=== PATIENT | male | born 1965 | race Caucasian/White ===

== ENCOUNTER 2016-05-12 08:35 | Emergency (ER) | payer MEDICARE, OTHER ==
[2016-05-12 08:47] VITALS: BP 110/61; PULSE 64; RESP 18; TEMP 98
[2016-05-12] MEDS ORDERED: GELATIN SPONGE,ABSORB (SMALL) 1 EACH SPONGE TOPICAL STA (08:54)
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
== END 2016-05-12 09:16 | disposition home or self-care (01) ==
LOC: EC 08:35
DX: S61.002A Unspecified open wound of left thumb without damage to nail, initial encounter (principal); J44.9 Chronic obstructive pulmonary disease, unspecified; E78.5 Hyperlipidemia, unspecified; I10 Essential (primary) hypertension; K21.9 Gastro-esophageal reflux disease without esophagitis; F41.9 Anxiety disorder, unspecified; N20.0 Calculus of kidney; M19.90 Unspecified osteoarthritis, unspecified site; Y93.G1 Activity, food preparation and clean up; W45.8XXA Other foreign body or object entering through skin, initial encounter; Z79.899 Other long term (current) drug therapy; Z79.82 Long term (current) use of aspirin; Z88.1 Allergy status to other antibiotic agents; G47.30 Sleep apnea, unspecified; Z99.89 Dependence on other enabling machines and devices; Z87.891 Personal history of nicotine dependence; Z79.51 Long term (current) use of inhaled steroids; Z73.6 Limitation of activities due to disability
CPT/HCPCS: 99282

== ENCOUNTER → 2016-10-16 | Outpatient (CLI) | payer MEDICARE, OTHER ==
--- NOTE | 2016-10-16 15:47 | BD ---
EXAMINATION TYPE: MG DEXA axial skeleton. DATE OF EXAM: 10/16/2016 COMPARISON: NONE CLINICAL HISTORY: 51-year-old male osteopenia Height: 71.5 IN Weight: 273 LBS FRAX RISK QUESTIONS: Alcohol (3 or more units per day): NO Family History (Parent hip fracture): NO Glucocorticoids (More than 3mos): NO (Ex: prednisone, prednisolone, methylprednisolone, dexamethasone, and hydrocortisone). History of Fracture in Adulthood: YES RT ANKLE AGE 49 Secondary Osteoporosis: 1. Type 1 Diabetes: NO 2. Hyperthyroidism: YES 3. Menopause before 45: N/A 4. Malnutrition: NO 5. Chronic liver disease: NO Rheumatoid Arthritis: NO Current Tobacco Use: NO RISK FACTORS HISTORY OF: History of Wrist Fracture: RT WRIST AGE 33 When: AGE 33 Surgery to Wrist (right): YES When: AGE 33 Active: MODERATE Diet low in dairy products/other sources of calcium: YES MEDICATIONS: Additional Medications: VIT D DROPS, PRILOSEC, NORCO, XANAX, ASPIRIN, ZOCOR, ATENOLOL, MOTRIN, ZANTAC , NEBULIZER ALBUTEROL AND PULMICORT EXAM MEASUREMENTS: Bone mineral densitometry was performed using the [employer] System. Bone mineral density as measured about the Lumbar spine is: ----- L1-L4(G/cm2): 1.003 T Score Values are as follows: ----- L2: -1.6 ----- L3: -1.3 ----- L4: -2.1 ----- L1-L4: -1.5 Bone mineral density BASELINE Bone mineral density about the R hip (g/cm2): 1.193 Bone mineral density about the L hip (g/cm2): 0.995 T Score values are as follows: -----R Neck: 1.1 -----L Neck: -0.3 -----R Total: -0.1 -----L Total: 0.1 Bone mineral density BASELINE IMPRESSION: Osteopenia as indicated by T score values in the lumbar spine. There is slightly increased risk of fracture and the patient may be considered for treatment. Re-Screen 2-5 years. NOTE: T-SCORE=SD OF THE YOUNG ADULT MEAN.
== END | disposition home or self-care (01) ==
LOC: RADBDWWP 14:56
PROVIDERS: ATTEND Family Medicine
DX: M85.88 Other specified disorders of bone density and structure, other site (principal)
CPT/HCPCS: 77080

== ENCOUNTER → 2017-04-15 | Outpatient (CLI) | payer MEDICARE, OTHER ==
--- NOTE | 2017-04-15 11:38 | MR ---
EXAMINATION TYPE: MR lumbar spine wo con DATE OF EXAM: 04/15/2017 COMPARISON: CT scan abdomen pelvis 09/21/2015 HISTORY: Arthritis With Radiculopathy TECHNIQUE: Multiplanar, multisequence images of the lumbar spine were acquired. L1-L2: Small posterior disc herniation in the right paracentral location causes anterolateral mass ef fect on the thecal sac. No significant central stenosis or foraminal encroachment. L2-L3: No herniation, protrusion or disc bulging. No canal stenosis is present. Foramina are paten t bilaterally. L3-L4: Small posterior disc bulge contacts anterior thecal sac. No significant central stenosis or fo raminal encroachment. No canal stenosis is present. Foramina are patent bilaterally. L4-L5: Small posterior broad-based disc bulge contacts anterior thecal sac. No significant central st enosis or foraminal encroachment. L5-S1: Small posterior disc bulge causes anterior mass effect on the thecal sac and possibly contacti ng the proximal S1 nerve roots. No central stenosis or foraminal encroachment. Increased signal at th e posterior aspect of the disc may represent an annular tear. Lumbar segments are intact. No paraspinal masses are identified. Conus medullaris has a normal appe arance. Lumbar vertebral bodies show preserved height and alignment. There is mild multilevel spondyl osis present. Loss of disc height and signal at the intervertebral levels is compatible with disc kevon iccation and degenerative disc disease. There is a low signal focus on T1 and T2-weighted sequences within the posterior aspect of the L5 winsome tebral body to the right of midline measuring approximately 1 cm x 1.5 cm x 1.2 cm in size which was not seen definitively on prior CT. Parapelvic cysts are again noted within the kidneys. IMPRESSION: Degenerative disc disease is mild. Sclerotic focus suspected at L5 to the right of midline, consider bone scan, possible follow-up CT with special attention to L5 for additional evaluation.
== END | disposition home or self-care (01) ==
LOC: RADMRIMAIN 08:52
PROVIDERS: ATTEND Orthopaedic Surgery
DX: M51.16 Intervertebral disc disorders with radiculopathy, lumbar region (principal)
CPT/HCPCS: 72148

== ENCOUNTER → 2017-05-19 | Outpatient (CLI) | payer MEDICARE, OTHER ==
--- NOTE | 2017-05-19 21:23 | NM ---
EXAMINATION TYPE: NM bone scan whole body DATE OF EXAM: 05/19/2017 COMPARISON: NONE HISTORY: Lumbar spinal stenosis Delayed whole-body scanning was performed following the injection of 26.1 mCi Tc 99m MDP. Images wer e acquired 3.45 hours post injection. FINDINGS: There is mild increased radiotracer accumulation of the bilateral knees and at the ankles most likely on the basis of degenerative change. There is probable contamination over the lower pelvis. Some deg enerative changes at the bilateral shoulders. Suspicious uptake in the lumbar spine is not identified. Spot imaging is performed over the abdomen w hich appears unremarkable. IMPRESSION: 1. Degenerative changes at multiple appendicular joints bases. 2. Suspicious uptake within the lumbar spine is not evident.
== END | disposition home or self-care (01) ==
LOC: RADNMMAIN 10:43
PROVIDERS: ATTEND Family Medicine
DX: M48.061 Spinal stenosis, lumbar region without neurogenic claudication (principal)
CPT/HCPCS: 78306; A9503

== ENCOUNTER → 2017-08-13 | Outpatient (CLI) | payer MEDICARE, OTHER ==
--- NOTE | 2017-08-13 07:30 | MR ---
PRE AND POSTCONTRAST ENHANCED MRI OF THE BRAIN: CLINICAL HISTORY: Left hemiparesis CONTRAST: 7 ML Gadavist Multiplanar and multispin-echo imaging of the brain was performed both before and after the administr ation of contrast. The ventricles, basal cisterns and sulci overlying the cerebral convexities are within normal limits. There is no evidence for midline shift or mass effect. Acute intracranial hemorrhage or extra-axial collection is not evident. Minimal periventricular white matter ischemic demyelination is appreciated. Vascular flow voids are p reserved. Following contrast administration, there is no evidence for pathologic enhancement or enhancing mass. The mastoid air cells are well-aerated. Mucous retention cysts are noted of the maxillary sinuses. IMPRESSION: Minimal periventricular white matter ischemic demyelination. Otherwise unremarkable study.
== END | disposition home or self-care (01) ==
LOC: RADMRIMAIN 06:09
PROVIDERS: ATTEND Family Medicine
DX: G37.8 Other specified demyelinating diseases of central nervous system (principal)
CPT/HCPCS: 82565; 70553; 36415; A9581

== ENCOUNTER → 2018-02-17 | Outpatient (CLI) | payer MEDICARE, OTHER ==
[~2018-02-17] MED LIST: REGADENOSON 0.4 MG/5 ML SYRINGE IV ONE
--- NOTE | 2018-02-17 11:39 | EST ---
EXERCISE STRESS DATE OF SERVICE: 02/17/2018 AGE: 52 SEX: Male HT: 72" WT: 285 pounds PROTOCOL: Lexiscan Cardiolite STAGE: DURATION OF EXERCISE: HEART RATE REST: 83 BLOOD PRESSURE REST: 102/70 MAXIMUM HEART RATE ACHIEVED: 99 MAXIMUM BLOOD PRESSURE: 111/66 85% MPHR: 100% MPHR: METS: INDICATIONS: Chest pain. CLINICAL INFORMATION: STRESS DATA: Pretesting physical examination showed a heart rate of 83, pressure is 102/70 mmHg. Baseline EKG showed sinus rhythm and 0.4 mg of Lexiscan given over 15 seconds per protocol with max heart rate was 99 beats per minute and maximum pressure was 111/66 mmHg. The patient did not have any symptoms. The EKG did not show any significant changes. CONCLUSION: 1. Nondiagnostic electrocardiogram stress testing in response to Lexiscan. 2. Please follow up on the Cardiolite portion on separate report from radiology department. MMODL / IJN: [id number] /
--- NOTE | 2018-02-17 13:42 | NM ---
EXAMINATION TYPE: NM stress lexiscan cardiolite DATE OF EXAM: 02/17/2018 COMPARISON: 02/26/2012 HISTORY: Chest pain TECHNIQUE: After the intravenous administration of 10.27 mCi Tc 99m Sestamibi - Cardiolite resting S PECT images acquired 50 minutes post injection. The patient received 0.4mg Lexiscan, 25.5 mCi Tc 99m Sestamibi - Stress images obtained [address] injection FINDINGS: Review of stress and rest SPECT images demonstrates no distinct perfusion abnormality. Apical infero lateral wall defect seen on rest images only does not persist on stress images and therefore relates to diaphragmatic and/or GI artifact. No reversible or fixed defect is seen. Gated analysis shows norm al wall motion with an estimated left ventricular ejection fraction of 55 %. TID is within normal an its calculated at 1.03. IMPRESSION: 1. No scintigraphic evidence for reversible ischemia. 2. Estimated left ventricular ejection fraction of 55%.
== END ==
LOC: RADNMMAIN 07:36
PROVIDERS: ATTEND Family Medicine
DX: I20.9 Angina pectoris, unspecified (principal)
CPT/HCPCS: 93017; 78452; A9500; J2785

== ENCOUNTER 2018-07-25 13:51 | Emergency (ER) | payer MEDICARE, OTHER ==
[2018-07-25 13:55] VITALS: PULSE 67; RESP 18
[2018-07-25] MEDS ORDERED: METOCLOPRAMIDE 5 MG/ML 2 ML VIAL IVP STA (14:12)
[2018-07-25] MEDS ORDERED: diphenhydrAMINE 50 MG/ML 1 ML VIAL IVP STA (14:12)
[2018-07-25] MEDS ORDERED: MORPHINE SULFATE 4 MG/ML SYRINGE IVP STA (14:12)
[2018-07-25] MEDS ORDERED: SODIUM CHLORIDE 0.9% 1,000 ML IV ONE (14:12)
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
--- NOTE | 2018-07-25 14:41 | CT ---
EXAMINATION TYPE: CT brain wo con DATE OF EXAM: 07/25/2018 COMPARISON: 02/26/2015 HISTORY: 52-year-old male Headache, nausea, dizziness, vomiting. TECHNIQUE: Examination was done in axial plane without intravenous contrast. Coronal and sagittal r econstructions performed. CT DLP: 1052.4 mGycm Automated exposure control for dose reduction was used. FINDINGS: There is no evidence of acute intracranial hemorrhage, acute ischemic changes, mass, mass-effect, or extra-axial fluid collection. There is no effacement of cerebral sulci or basal subarachnoid cister ns. There is no hydrocephalus. There is no midline shift. Cruz-white matter distinction is preserv ed. Paranasal sinuses and mastoid air cells are pneumatized. Orbits and globes are intact. IMPRESSION: No acute intracranial abnormality seen.
[2018-07-25] MEDS ORDERED: KETOROLAC 30 MG/ML 1 ML VIAL IVP STA (14:44)
[2018-07-25 15:25] VITALS: BP 103/78; TEMP 97.8
== END 2018-07-25 15:20 | disposition home or self-care (01) ==
LOC: EC 13:51
DX: G43.909 Migraine, unspecified, not intractable, without status migrainosus (principal); J44.9 Chronic obstructive pulmonary disease, unspecified; K21.9 Gastro-esophageal reflux disease without esophagitis; E78.5 Hyperlipidemia, unspecified; I10 Essential (primary) hypertension; M19.90 Unspecified osteoarthritis, unspecified site; Z87.891 Personal history of nicotine dependence; Z88.1 Allergy status to other antibiotic agents; Z79.51 Long term (current) use of inhaled steroids; Z79.82 Long term (current) use of aspirin; Z79.891 Long term (current) use of opiate analgesic; Z79.899 Other long term (current) drug therapy; Z99.81 Dependence on supplemental oxygen; Z95.818 Presence of other cardiac implants and grafts
CPT/HCPCS: 70450; 99284; 96374; 96375 ×3; 96361; J2270; J1200; J2765; J1885

== ENCOUNTER 2019-01-13 12:19 | Emergency (ER) | payer MEDICARE, OTHER ==
[2019-01-13] MEDS ORDERED: DIPH,PERTUS(ACELL)TETVAC-LF 0.5 ML VIAL IM ONE (12:54)
[2019-01-13] MEDS ORDERED: HYDROcodone/APAP 5-325MG 1 EACH TAB PO STA (13:25)
[2019-01-13] MEDS ORDERED: AMOXIC-POT CLAV 875-125MG 1 EACH TAB PO STA (13:26)
[2019-01-13] MEDS ORDERED: AMOXIC-POT CLAV 875MG STARTER 2 EACH TABLET PO STA (13:26)
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
--- NOTE | 2019-01-13 14:00 | XR ---
Right hand HISTORY: Penetrating trauma, pain 3 views of the right hand Bone mineralization is reduced. Joint spaces and alignment are maintained. No radiopaque foreign body . IMPRESSION: No fracture or dislocation is evident.
[2019-01-13] MEDS ORDERED: ACET/COD 300 MG/30 MG STARTER PACK 6 TAB BTL PO STA (14:23)
[2019-01-13 15:44] VITALS: BP 120/78; PULSE 70; RESP 18; TEMP 98.6
== END 2019-01-13 15:30 | disposition home or self-care (01) ==
LOC: EC 12:19
DX: S69.91XA Unspecified injury of right wrist, hand and finger(s), initial encounter (principal); E78.5 Hyperlipidemia, unspecified; F41.9 Anxiety disorder, unspecified; I10 Essential (primary) hypertension; K21.9 Gastro-esophageal reflux disease without esophagitis; M19.90 Unspecified osteoarthritis, unspecified site; J44.9 Chronic obstructive pulmonary disease, unspecified; Z79.82 Long term (current) use of aspirin; Z79.890 Hormone replacement therapy; Z79.899 Other long term (current) drug therapy; Z79.51 Long term (current) use of inhaled steroids; Z88.1 Allergy status to other antibiotic agents; Z87.891 Personal history of nicotine dependence; Z99.81 Dependence on supplemental oxygen; Z99.89 Dependence on other enabling machines and devices; Z95.5 Presence of coronary angioplasty implant and graft; Z96.651 Presence of right artificial knee joint; Z98.890 Other specified postprocedural states; W29.4XXA Contact with nail gun, initial encounter; Y33.XXXA Other specified events, undetermined intent, initial encounter; Y93.89 Activity, other specified; Y92.009 Unspecified place in unspecified non-institutional (private) residence as the place of occurrence of the external cause; Z23 Encounter for immunization
CPT/HCPCS: 90471; 90715; 99284

== ENCOUNTER 2019-03-22 13:58 | Inpatient (IN) | payer OTHER, MEDICARE ==
[2019-03-22] MEDS ORDERED: HYDROmorphone 1 MG/ML 1 ML SYRINGE IVP STA ×3 (14:13→16:19)
[2019-03-22] MEDS ORDERED: SODIUM CHLORIDE 0.9% 1,000 ML IV STA (14:20)
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
[2019-03-22 14:49] LABS: ALT 39 U/L (4-49); AST 42 U/L (17-59); African American GFR (CKD) >90 (>60 ml/min/1.73 sqM); Albumin 4.1 g/dL (3.5-5.0); Alcohol <10 mg/dL; Alkaline Phosphatase 67 U/L (38-126); Anion Gap 10 mmol/L; Blood Urea Nitrogen 12 mg/dL (9-20); Carbon Dioxide 23 mmol/L (22-30); Chloride 107 mmol/L (98-107); Creatine Kinase 188 U/L (55-170); Glucose 123 mg/dL (74-99); Magnesium 1.8 mg/dL (1.6-2.3); Non-African American GFR(CKD) >90 (>60 ml/min/1.73 sqM); Phosphorus 1.8 mg/dL (2.5-4.5); Potassium 4.1 mmol/L (3.5-5.1); Sodium 140 mmol/L (137-145); Total Protein 6.7 g/dL (6.3-8.2)
[2019-03-22 14:53] LABS: Basophils # (A) 0.1 k/uL (0-0.2); Basophils % (A) 1 %; Eosinophils % (A) 0 %; HGB 14.9 gm/dL (13.0-17.5); Lymphocytes # (A) 2.4 k/uL (1.0-4.8); Lymphocytes % (A) 31 %; MCH 28.9 pg (25.0-35.0); MCHC 35.5 g/dL (31.0-37.0); MCV 81.3 fL (80.0-100.0); Monocytes # (A) 0.5 k/uL (0-1.0); Monocytes % (A) 7 %; Neutrophils # (A) 4.6 k/uL (1.3-7.7); Neutrophils % (A) 59 %; Platelet Count 274 k/uL (150-450); RBC 5.16 m/uL (4.30-5.90); RDW 13.4 % (11.5-15.5); WBC 7.8 k/uL (3.8-10.6)
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
--- NOTE | 2019-03-22 15:25 | XR ---
EXAMINATION TYPE: XR knee complete bilateral DATE OF EXAM: 03/22/2019 CLINICAL HISTORY: pain TECHNIQUE: Three views of the right knee are obtained. COMPARISON: None. FINDINGS: There is no acute fracture/dislocation. Total knee arthroplasty right knee. The overlying soft tissue appears unremarkable. IMPRESSION: There is no acute fracture or dislocation.ICD 10 NO FRACTURE, INITIAL EVALUATION EXAMINATION TYPE: XR knee complete bilateral DATE OF EXAM: 03/22/2019 CLINICAL HISTORY: pain TECHNIQUE: Three views of the left knee are obtained. COMPARISON: None. FINDINGS: There is no acute fracture/dislocation. The tri-compartment joint spaces appear within no rmal limits. The overlying soft tissue appears unremarkable. IMPRESSION: There is no acute fracture or dislocation ICD 10 NO FRACTURE, INITIAL EVALUATION
--- NOTE | 2019-03-22 15:26 | XR ---
EXAMINATION TYPE: XR chest 1V DATE OF EXAM: 03/22/2019 HISTORY: Shortness of breath. COMPARISON: 07/13/2014 TECHNIQUE: Single view of the chest is submitted. FINDINGS: Demonstrated are scattered senescent parenchymal change. There is no evidence for focal infiltrate. The heart is stable. Hilar and mediastinal structures are within normal limits. Degenerative changes are seen of the dorsal spine. IMPRESSION: 1. Chronic changes without evidence for acute pulmonary disease.
--- NOTE | 2019-03-22 15:33 | XR ---
EXAMINATION TYPE: XR Hip Bilateral and AP pelvis DATE OF EXAM: 03/22/2019 CLINICAL HISTORY: pain TECHNIQUE: Single view the pelvis is submitted. 2 views of each hip is submitted as well. FINDINGS: No evidence for fracture, dislocation or bony lesion. Joint spaces are moderately narrowe d bilaterally. SI joints appear symmetric. IMPRESSION: 1. No acute fracture or dislocation seen. ICD 10 NO FRACTURE, INITIAL EVALUATION
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
--- NOTE | 2019-03-22 17:07 | XR ---
EXAMINATION TYPE: XR shoulder complete BILAT DATE OF EXAM: 03/22/2019 COMPARISON: NONE HISTORY: Bilateral shoulder pain TECHNIQUE: 3 views each shoulder FINDINGS: I see no fracture nor dislocation. Joint spaces are fairly normal. There are no pathologic calcifications. IMPRESSION: Negative bilateral shoulder exam. No fracture seen.
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
[2019-03-22] MEDS ORDERED: SODIUM CHLORIDE 0.9% 1,000 ML IV ONE (19:24)
[2019-03-22] MEDS: KETOROLAC 30 MG/ML 1 ML VIAL IVP SCH (20:28)
[2019-03-22] MEDS: HYDROmorphone 0.5 MG/0.5 ML SYRINGE IVP PRN (21:23)
[2019-03-22] MEDS ORDERED: BUTALB/APAP/CAFF 50-325-40MG TAB PO PRN (21:29)
[2019-03-22] MEDS ORDERED: FAMOTIDINE 20 MG TAB PO PRN (21:29)
[2019-03-22] MEDS ORDERED: CYCLOBENZAPRINE 10 MG TAB PO PRN (21:29)
[2019-03-22] MEDS: hydrOXYzine HCL 25 MG TAB PO SCH (21:59)
[2019-03-22] MEDS: MONTELUKAST 10 MG TAB PO SCH (22:00)
[2019-03-22] MEDS: TAMSULOSIN 0.4 MG CAP.ER.24H PO SCH (22:00)
[2019-03-22] MEDS: ATORVASTATIN 20 MG TAB PO SCH (22:00)
[2019-03-23] MEDS: HYDROmorphone 0.5 MG/0.5 ML SYRINGE IVP PRN ×4 (00:49→06:52)
[2019-03-23] MEDS: KETOROLAC 30 MG/ML 1 ML VIAL IVP SCH ×3 (05:55→18:55)
[2019-03-23] MEDS: LEVOTHYROXINE 75 MCG TAB PO SCH (05:56)
[2019-03-23] MEDS: ALBUTEROL NEBULIZED 2.5 MG/3 ML INHALATION PRN ×2 (07:31→10:40)
[2019-03-23] MEDS: BUDESONIDE 0.5 MG/2 ML NEBU INHALATION SCH ×2 (07:32→19:58)
[2019-03-23] MEDS: ATENOLOL 50 MG TAB PO SCH (08:36)
[2019-03-23] MEDS: ASPIRIN 81 MG PO SCH ×2 (08:36→20:45)
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
[2019-03-23] MEDS: HYDROcodone/APAP 10-325MG 1 EACH TAB PO PRN ×2 (09:49→23:01)
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
[2019-03-23] MEDS ORDERED: LORazepam 2 MG/ML INJ IV STA (13:32)
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
[2019-03-23] MEDS ORDERED: ONDANSETRON 4 MG/2 ML VIAL IVP PRN (15:21)
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
[2019-03-23] MEDS: MONTELUKAST 10 MG TAB PO SCH (20:45)
[2019-03-23] MEDS: TAMSULOSIN 0.4 MG CAP.ER.24H PO SCH (20:45)
[2019-03-23] MEDS: hydrOXYzine HCL 25 MG TAB PO SCH (20:46)
[2019-03-23] MEDS: ATORVASTATIN 20 MG TAB PO SCH (20:46)
[2019-03-24] MEDS: KETOROLAC 30 MG/ML 1 ML VIAL IVP SCH ×3 (00:50→09:31)
[2019-03-24] MEDS: HYDROcodone/APAP 10-325MG 1 EACH TAB PO PRN ×2 (06:14→12:17)
[2019-03-24] MEDS: LEVOTHYROXINE 75 MCG TAB PO SCH (06:14)
[2019-03-24] MEDS: ALBUTEROL NEBULIZED 2.5 MG/3 ML INHALATION PRN (07:22)
[2019-03-24] MEDS: BUDESONIDE 0.5 MG/2 ML NEBU INHALATION SCH (07:22)
[2019-03-24 08:09] VITALS: BP 122/71; PULSE 96; RESP 19; TEMP 98.4
[2019-03-24] MEDS: ATENOLOL 50 MG TAB PO SCH (09:31)
[2019-03-24] MEDS: ASPIRIN 81 MG PO SCH (09:31)
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
== END 2019-03-24 12:43 | disposition home or self-care (01) | DRG 948 ==
LOC: EC 13:58 → 1SOBS 19:28 → OBSVTOIN 03-23 16:39
PROVIDERS: ADMIT Family Medicine; ATTEND Family Medicine
DX: G89.11 Acute pain due to trauma (principal); E78.5 Hyperlipidemia, unspecified; M25.561 Pain in right knee; M25.551 Pain in right hip; M51.16 Intervertebral disc disorders with radiculopathy, lumbar region; M51.17 Intervertebral disc disorders with radiculopathy, lumbosacral region; G89.29 Other chronic pain; I10 Essential (primary) hypertension; J44.9 Chronic obstructive pulmonary disease, unspecified; K21.9 Gastro-esophageal reflux disease without esophagitis; G47.30 Sleep apnea, unspecified; M19.90 Unspecified osteoarthritis, unspecified site; Z99.81 Dependence on supplemental oxygen; Z79.82 Long term (current) use of aspirin; Z79.890 Hormone replacement therapy; Z79.51 Long term (current) use of inhaled steroids; Z79.899 Other long term (current) drug therapy; Z87.442 Personal history of urinary calculi; Z87.09 Personal history of other diseases of the respiratory system; Z98.890 Other specified postprocedural states; Z90.49 Acquired absence of other specified parts of digestive tract; Z96.651 Presence of right artificial knee joint; Z87.891 Personal history of nicotine dependence; Z86.59 Personal history of other mental and behavioral disorders; Z88.1 Allergy status to other antibiotic agents; Z91.040 Latex allergy status; V03.10XA Pedestrian on foot injured in collision with car, pick-up truck or van in traffic accident, initial encounter; Y92.481 Parking lot as the place of occurrence of the external cause; Y93.01 Activity, walking, marching and hiking; Z83.3 Family history of diabetes mellitus; Z82.3 Family history of stroke; Z82.5 Family history of asthma and other chronic lower respiratory diseases
CPT/HCPCS: 36415; 70450; 71045; 72100; 72125; 72148; 73521; 80053; 80320; 82550; 83735; 84100; 85025; 93005; 94640; 94760; 96361; 96374; 96376; 99285

== ENCOUNTER → 2019-09-02 | Outpatient (CLI) | payer MEDICARE, OTHER ==
--- NOTE | 2019-09-02 16:04 | US ---
EXAMINATION TYPE: US venous doppler duplex LE LT DATE OF EXAM: 09/02/2019 3:53 PM COMPARISON: NONE CLINICAL HISTORY: M79.662,R22.42. Knee sx x 1 week ago. Pain. No swelling. No redness. On aspirin . SIDE PERFORMED: Left TECHNIQUE: The lower extremity deep venous system is examined utilizing real time linear array sonog socrates with graded compression, doppler sonography and color-flow sonography. VESSELS IMAGED: External Iliac Vein (EIV) Common Femoral Vein Deep Femoral Vein Greater Saphenous Vein * Femoral Vein Popliteal Vein Small Saphenous Vein * Proximal Calf Veins (* superficial vessels) Grayscale, color doppler, spectral doppler imaging performed of the deep veins of the left lower extr emity. There is normal flow, compressibility, vascular waveforms. Left Leg: Negative for DVT IMPRESSION: No sonographic evidence of deep venous thrombosis within the left lower extremity.
== END | disposition home or self-care (01) ==
LOC: RADUSWWP 15:23
PROVIDERS: ATTEND Family Medicine
DX: M79.662 Pain in left lower leg (principal)

== ENCOUNTER 2019-10-22 11:47 | Emergency (ER) | payer MEDICARE, OTHER ==
[2019-10-22] MEDS ORDERED: SODIUM CHLORIDE 0.9% 1,000 ML IV STA (12:48)
[2019-10-22] MEDS ORDERED: METOCLOPRAMIDE 5 MG/ML 2 ML VIAL IVP STA (12:48)
[2019-10-22] MEDS ORDERED: KETOROLAC 30 MG/ML 1 ML VIAL IVP STA (12:48)
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
[2019-10-22 13:18] LABS: ALT 36 U/L (4-49); AST 40 U/L (17-59); African American GFR (CKD) >90 (>60 ml/min/1.73 sqM); Albumin 4.6 g/dL (3.5-5.0); Alkaline Phosphatase 76 U/L (38-126); Amylase 42 U/L (30-110); Anion Gap 11 mmol/L; Blood Urea Nitrogen 13 mg/dL (9-20); Calcium 9.3 mg/dL (8.4-10.2); Carbon Dioxide 24 mmol/L (22-30); Chloride 106 mmol/L (98-107); Glucose 161 mg/dL (74-99); Non-African American GFR(CKD) >90 (>60 ml/min/1.73 sqM); Potassium 4.4 mmol/L (3.5-5.1); Sodium 141 mmol/L (137-145); Total Protein 7.2 g/dL (6.3-8.2)
[2019-10-22 13:21] LABS: Basophils % (A) 0 %; Eosinophils % (A) 0 %; HCT 43.3 % (39.0-53.0); HGB 15.5 gm/dL (13.0-17.5); Lymphocytes # (A) 2.3 k/uL (1.0-4.8); Lymphocytes % (A) 29 %; MCH 29.3 pg (25.0-35.0); MCHC 35.7 g/dL (31.0-37.0); MCV 82.2 fL (80.0-100.0); Mean Platelet Volume 7.2; Monocytes # (A) 0.5 k/uL (0-1.0); Monocytes % (A) 6 %; Neutrophils % (A) 64 %; Platelet Count 254 k/uL (150-450); RBC 5.27 m/uL (4.30-5.90); RDW 13.6 % (11.5-15.5); WBC 7.9 k/uL (3.8-10.6)
[2019-10-22 13:34] LABS: INR 0.9 (<1.2); Prothrombin Time 9.6 sec (9.0-12.0)
[2019-10-22] MEDS ORDERED: HYDROmorphone 1 MG/ML 1 ML SYRINGE IVP STA ×2 (13:56→14:55)
[2019-10-22 14:06] LABS: Amorphous Sediment,Urine Rare /hpf; Appearance,Urine Clear (Clear); Bacteria,Urine Rare /hpf; Bilirubin,Urine Negative (Negative); Blood,Urine Moderate (Negative); Color,Urine Yellow; Glucose,Urine (UA) Trace (Negative); Ketones,Urine Trace (Negative); Leukocyte Esterase,Urine Negative (Negative); Mucus,Urine Many /hpf; Nitrite,Urine Negative (Negative); Protein,Urine 1+ (Negative); RBC,Urine 10 /hpf (0-5); Specific Gravity,Urine 1.038 (1.001-1.035); Sperm,Urine Rare /hpf; Squamous Epithelial Cell,Urine <1 /hpf (0-4); WBC,Urine 3 /hpf (0-5)
--- NOTE | 2019-10-22 14:29 | XR ---
EXAMINATION TYPE: XR KUB DATE OF EXAM: 10/22/2019 COMPARISON: NONE HISTORY: Pain TECHNIQUE: Single supine KUB image of the abdomen is obtained FINDINGS: Small bowel demonstrates no evidence for dilatation or air fluid levels. Gas and fecal material is seen in non-distended colon. No convincing evidence for pneumoperitoneum. No unusual calcifications. The lung bases are clear. The osseous structures are intact. IMPRESSION: 1. Overall nonobstructive bowel gas pattern.
--- NOTE | 2019-10-22 14:36 | CT ---
EXAMINATION TYPE: CT abdomen pelvis wo con DATE OF EXAM: 10/22/2019 COMPARISON: 09/21/2015 HISTORY: Right flank pain. CT DLP: 1683.4 mGycm Examination of the solid and hollow viscera is limited given the lack of contrast. FINDINGS: LUNG BASES: No evidence for nodule. No evidence for infiltrate. LIVER/GB: The gallbladder is unremarkable. No space-occupying hepatic lesion. PANCREAS: No pancreatic mass identified. No inflammatory process seen. SPLEEN: No evidence for splenomegaly. No intrasplenic lesions seen. ADRENALS: No adrenal nodules identified. No evidence for thickening. KIDNEYS: Mild right-sided hydronephrosis secondary to a 3 mm distal right ureteral calculus just prox imal to the right UVJ. No additional calculi seen. Parapelvic cysts noted left kidney. No solid angelique s identified. BOWEL: Appendix has a normal appearance. No evidence of bowel obstruction. No inflammatory process. Lymph nodes: No evidence for adenopathy greater than 1 cm. Abdominal aorta: Atheromatous changes seen. No evidence for aneurysm. Genital organs: No significant abnormality. Other: No significant abnormality. IMPRESSION: Mild right-sided hydronephrosis secondary to a 3 mm distal right ureteral calculus just proximal to t he right UVJ.
[2019-10-22] MEDS ORDERED: ONDANSETRON 4 MG/2 ML VIAL IVP STA (16:00)
[2019-10-22] MEDS ORDERED: MORPHINE SULFATE 4 MG/ML SYRINGE IV STA (16:41)
[2019-10-22 17:00] VITALS: RESP 18
[2019-10-22 18:33] VITALS: BP 135/70; PULSE 81; TEMP 97.7
== END 2019-10-22 18:30 | disposition home or self-care (01) ==
LOC: EC 11:47
DX: N13.2 Hydronephrosis with renal and ureteral calculous obstruction (principal); J44.9 Chronic obstructive pulmonary disease, unspecified; K21.9 Gastro-esophageal reflux disease without esophagitis; I10 Essential (primary) hypertension; E78.5 Hyperlipidemia, unspecified; G47.30 Sleep apnea, unspecified; Z79.82 Long term (current) use of aspirin; Z79.51 Long term (current) use of inhaled steroids; Z79.890 Hormone replacement therapy; Z79.899 Other long term (current) drug therapy; Z88.1 Allergy status to other antibiotic agents; Z91.040 Latex allergy status; Z87.891 Personal history of nicotine dependence; Z99.89 Dependence on other enabling machines and devices
CPT/HCPCS: 36415; 80053; 82150; 83690; 85025; 85610; 85730; 81001; 74018; 74176; 99284; 96374; 96375 ×4; 96376; 96361 ×5; J2270; J2765; J2405; J1885; J1170

== ENCOUNTER → 2020-09-13 | Outpatient (CLI) | payer MEDICARE, OTHER ==
--- NOTE | 2020-09-14 10:14 | CT ---
EXAMINATION TYPE: CT abdomen pelvis w con DATE OF EXAM: 09/13/2020 COMPARISON: 10/22/2019 INDICATION: diverticulitis DLP: 2532.60 mGycm, Automated exposure control for dose reduction was used. CONTRAST: 100 mL of Isovue 300. Study performed without Oral Contrast TECHNIQUE: Axial images were obtained from above the diaphragm to the pubic rami in the axial plane a t 5 mm thick sections. Reconstructed images are reviewed on the computer in the coronal plane. FINDINGS: Limited CT sections are obtained the lung bases. The lung bases are clear. CT ABDOMEN: Liver: Normal Spleen: Normal. Splenule is anterior to the spleen. Pancreas: Mildly atrophic Adrenal glands: The adrenal glands are normal. Gallbladder: Not identified. Kidneys: No masses are evident. No hydronephrosis is present. Peripelvic cysts may be present large r on the left. Delayed images were obtained through the kidneys, which remain unremarkable. There is a nonobstructing 0.4 cm calcification at the inferior pole left kidney. Aorta: Vascular calcification is within the aorta. Inferior vena cava: Normal. CT PELVIS: Loops of bowel within the abdomen and pelvis are normal. A few scattered diverticula are present with in the sigmoid colon. There are loops of bowel which are incompletely distended or lack oral contr ast limiting their evaluation. Appendix: Normal as visualized. Urinary bladder: Decompressed with limited evaluation Genitourinary structures: Prostate appears unremarkable. Osseous structures: No suspicious lytic or sclerotic lesions. There may be an enlarged lymph node with a large fatty hilum in the left inguinal region. Smaller rig ht inguinal lymph nodes are present. IMPRESSIONS: 1. No suspicious changes to suggest acute diverticulitis. Mild diverticulosis may be present. 2. Peripelvic cysts within the bilateral kidneys.
== END | disposition home or self-care (01) ==
LOC: RADCTMAIN 09:53
PROVIDERS: ATTEND Family Medicine
DX: N28.1 Cyst of kidney, acquired (principal)
CPT/HCPCS: 74177; Q9967

== ENCOUNTER → 2020-11-14 | Outpatient (CLI) | payer MEDICARE, OTHER ==
[2020-11-14 10:17] LABS: African American GFR (CKD) >90 (>60 ml/min/1.73 sqM); Anion Gap 9 mmol/L; Blood Urea Nitrogen 14 mg/dL (9-20); Carbon Dioxide 26 mmol/L (22-30); Chloride 105 mmol/L (98-107); Non-African American GFR(CKD) >90 (>60 ml/min/1.73 sqM); Potassium 3.9 mmol/L (3.5-5.1); Sodium 140 mmol/L (137-145)
[2020-11-14 10:37] LABS: Basophils % (A) 0 %; Eosinophils % (A) 0 %; HCT 44.2 % (39.0-53.0); HGB 15.4 gm/dL (13.0-17.5); Lymphocytes # (A) 2.1 k/uL (1.0-4.8); Lymphocytes % (A) 30 %; MCH 29.7 pg (25.0-35.0); MCHC 34.9 g/dL (31.0-37.0); MCV 84.9 fL (80.0-100.0); Mean Platelet Volume 7.6; Monocytes # (A) 0.4 k/uL (0-1.0); Monocytes % (A) 6 %; Neutrophils # (A) 4.3 k/uL (1.3-7.7); Neutrophils % (A) 62 %; Platelet Count 254 k/uL (150-450); RDW 13.8 % (11.5-15.5); WBC 6.9 k/uL (3.8-10.6)
[2020-11-14 10:50] LABS: Appearance,Urine Clear (Clear); Bilirubin,Urine Negative (Negative); Blood,Urine Large (Negative); Color,Urine Yellow; Glucose,Urine (UA) Negative (Negative); Ketones,Urine Negative (Negative); Leukocyte Esterase,Urine Negative (Negative); Mucus,Urine Many /hpf; Nitrite,Urine Negative (Negative); PH, Urine 5.5 (5.0-8.0); Protein,Urine 1+ (Negative); RBC,Urine >182 /hpf (0-5); Specific Gravity,Urine 1.034 (1.001-1.035); Squamous Epithelial Cell,Urine 1 /hpf (0-4); WBC,Urine 1 /hpf (0-5)
== END | disposition home or self-care (01) ==
LOC: LABPAT 08:43
PROVIDERS: ATTEND Urology
DX: Z01.812 Encounter for preprocedural laboratory examination (principal); N20.0 Calculus of kidney
CPT/HCPCS: 80051; 81001; 82565; 84520; 85025

== ENCOUNTER 2020-11-20 08:46 | Day surgery (SDC) | payer MEDICARE, OTHER ==
[2020-11-16 14:42] VITALS: BMI 40.0
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
[~2020-11-20 08:46] MED LIST changes: +LACTATED RINGERS 1,000 ML IV SCH; +LIDOCAINE 1% (10MG/ML) FOR IV START INTRADERMA PRN; -REGADENOSON 0.4 MG/5 ML SYRINGE IV ONE
[2020-11-20] MEDS ORDERED: ONDANSETRON 4 MG/2 ML VIAL ONE ×2 (09:37→10:09)
[2020-11-20] MEDS ORDERED: ONDANSETRON 4 MG/2 ML VIAL IVP ONE (09:45)
[2020-11-20] MEDS ORDERED: LACTATED RINGERS 1,000 ML IV ONE ×2 (09:45→10:39)
--- NOTE | 2020-11-20 09:54 | XR ---
EXAMINATION TYPE: XR KUB DATE OF EXAM: 11/20/2020 HISTORY: Pain Comparison: 10/22/2019Single KUB is submitted for interpretation. Findings: Right renal calculi: None Visualized. Right ureteral calculi: None Visualized. Left renal calculi: Left kidney is limited by overlying bowel content. Left ureteral calculi: None Visualized. Pelvic calcifications: Multiple pelvic phleboliths noted. Bowel gas pattern is unremarkable. No free air. No mass effects. IMPRESSION: 1. Left kidney is limited by overlying bowel content.
[2020-11-20] MEDS ORDERED: ePHEDrine SULFATE/0.9% NACL/PF 50 MG/5 ML SYRINGE IV ONE (10:09)
[2020-11-20] MEDS ORDERED: PROPOFOL 10 MG/ML 20 ML VIAL IV ONE (10:09)
[2020-11-20] MEDS ORDERED: LIDOCAINE 1% INJ 10MG/ML (20 ML MDV) ONE (10:09)
[2020-11-20] MEDS ORDERED: fentaNYL (PF) 50 MCG/ML 2 ML AMP ONE (10:09)
[2020-11-20] MEDS ORDERED: PHENYLEPHRINE-0.9% NACL SYG 1,000 MCG/10 ML SYRINGE ONE (10:09)
[2020-11-20] MEDS ORDERED: diphenhydrAMINE 50 MG/ML 1 ML VIAL ONE (10:09)
[2020-11-20] MEDS ORDERED: MIDAZOLAM 2 MG/2 ML VIAL ONE (10:09)
[2020-11-20] MEDS ORDERED: GENTAMICIN 40 MG/ML 2 ML VIAL ONE (10:09)
--- NOTE | 2020-11-20 10:56 | P.OP ---
Date of Procedure: 11/20/20 Preoperative Diagnosis: Left renal stone Postoperative Diagnosis: Same Procedure(s) Performed: Left ESWL Implants: none Anesthesia: TRISTAN Surgeon: Hector Tellez Estimated Blood Loss (ml): 0 Pathology: none sent Condition: stable Disposition: PACU Indications for Procedure: This is a 55-year-old male with history of a 4 mm left-sided lower pole stone, he is symptomatic from his stone. Option of ESWL were discussed with him. Risk and benefit were discussed in detail. he understood all the risk and agreed to proceed Description of Procedure: The patient was taken to the operating room and placed on the Dornier Compact Delta II lithotripter in the supine position. The calculus was seen on biplanar fluoroscopy. . Once the patient was properly positioned and general anesthesia was administered, lithotripsy was performed. The energy level was gradually increased per protocol, to an energy level of 4. A total of 2500 shocks were given. A rate of 80 shocks per minute. Fluoroscopy was utilized at a minimum to ensure proper positioning and determine the treatment status. The calculus changed in appearance, there was excellent fragmentation . Repeat fluoroscopy was done at the end of the case which showed minimal residual fragments, The patient tolerated the procedure well was taken to the recovery room in stable condition. Instructions were given to strain the urine, and the patient will follow-up within one week.
[2020-11-20 11:10] VITALS: TEMP 98
[2020-11-20] MEDS ORDERED: KETOROLAC 15 MG/ML 1 ML VIAL ONE (11:14)
[2020-11-20 11:20] VITALS: RESP 16
[2020-11-20 12:09] VITALS: BP 135/72; PULSE 72
== END 2020-11-20 12:19 | disposition home or self-care (01) ==
LOC: ORWHC2ENDO 08:46
PROVIDERS: ATTEND Urology
DX: N20.0 Calculus of kidney (principal); J44.9 Chronic obstructive pulmonary disease, unspecified; I10 Essential (primary) hypertension; E78.5 Hyperlipidemia, unspecified; G47.33 Obstructive sleep apnea (adult) (pediatric); F41.9 Anxiety disorder, unspecified; K21.9 Gastro-esophageal reflux disease without esophagitis; Z79.890 Hormone replacement therapy
CPT/HCPCS: 50590; 74018; J2250; J1200; J1580; J2405; J2001; J3010; J1885; J2370; J2704

== ENCOUNTER 2020-11-21 20:57 | Emergency (ER) | payer MEDICARE, OTHER ==
[2020-11-21 21:48] VITALS: TEMP 98.3
[2020-11-21 22:39] LABS: Appearance,Urine Clear (Clear); Bacteria,Urine Rare /hpf; Bilirubin,Urine Negative (Negative); Blood,Urine Large (Negative); Color,Urine Yellow; Glucose,Urine (UA) Negative (Negative); Hyaline Casts,Urine 1 /lpf (0-2); Ketones,Urine Trace (Negative); Leukocyte Esterase,Urine Negative (Negative); Mucus,Urine Few /hpf; Nitrite,Urine Negative (Negative); Protein,Urine 1+ (Negative); RBC,Urine >182 /hpf (0-5); Specific Gravity,Urine 1.023 (1.001-1.035); Squamous Epithelial Cell,Urine 1 /hpf (0-4); WBC,Urine 1 /hpf (0-5)
[2020-11-21] MEDS ORDERED: KETOROLAC 15 MG/ML 1 ML VIAL IVP STA (23:11)
[2020-11-21] MEDS ORDERED: SODIUM CHLORIDE 0.9% 1,000 ML IV STA (23:11)
[2020-11-21] MEDS ORDERED: MORPHINE SULFATE 4 MG/ML SYRINGE IVP STA (23:16)
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
[2020-11-22 00:02] LABS: Basophils % (A) 0 %; Eosinophils % (A) 0 %; HCT 42.9 % (39.0-53.0); HGB 15.3 gm/dL (13.0-17.5); Lymphocytes # (A) 1.7 k/uL (1.0-4.8); Lymphocytes % (A) 21 %; MCH 30.4 pg (25.0-35.0); MCHC 35.7 g/dL (31.0-37.0); MCV 85.1 fL (80.0-100.0); Mean Platelet Volume 7.2; Monocytes # (A) 0.5 k/uL (0-1.0); Monocytes % (A) 6 %; Neutrophils # (A) 5.7 k/uL (1.3-7.7); Neutrophils % (A) 71 %; Platelet Count 248 k/uL (150-450); RBC 5.05 m/uL (4.30-5.90); RDW 13.6 % (11.5-15.5)
[2020-11-22 00:16] LABS: ALT 27 U/L (4-49); AST 30 U/L (17-59); African American GFR (CKD) >90 (>60 ml/min/1.73 sqM); Albumin 4.3 g/dL (3.5-5.0); Alkaline Phosphatase 68 U/L (38-126); Anion Gap 8 mmol/L; Blood Urea Nitrogen 14 mg/dL (9-20); Calcium 9.3 mg/dL (8.4-10.2); Carbon Dioxide 27 mmol/L (22-30); Chloride 104 mmol/L (98-107); Glucose 109 mg/dL (74-99); Non-African American GFR(CKD) >90 (>60 ml/min/1.73 sqM); Potassium 4.4 mmol/L (3.5-5.1); Sodium 139 mmol/L (137-145); Total Bilirubin 0.9 mg/dL (0.2-1.3); Total Protein 6.8 g/dL (6.3-8.2)
[2020-11-22] MEDS ORDERED: MORPHINE SULFATE 4 MG/ML SYRINGE IV STA (01:06)
[2020-11-22 01:30] VITALS: BP 155/82; PULSE 64; RESP 18
== END 2020-11-22 01:32 | disposition home or self-care (01) ==
LOC: EC 20:57
DX: R31.9 Hematuria, unspecified (principal); R10.9 Unspecified abdominal pain; J44.9 Chronic obstructive pulmonary disease, unspecified; I10 Essential (primary) hypertension; E78.5 Hyperlipidemia, unspecified; K21.9 Gastro-esophageal reflux disease without esophagitis; M19.90 Unspecified osteoarthritis, unspecified site; Z88.1 Allergy status to other antibiotic agents; Z79.899 Other long term (current) drug therapy; Z91.040 Latex allergy status; Z90.49 Acquired absence of other specified parts of digestive tract; Z79.82 Long term (current) use of aspirin; Z87.891 Personal history of nicotine dependence
CPT/HCPCS: 36415; 80053; 85025; 81001; 99284; 96374; 96361; J2270

== ENCOUNTER → 2020-11-27 | Outpatient (CLI) | payer MEDICARE, OTHER ==
--- NOTE | 2020-11-27 10:19 | XR ---
EXAMINATION TYPE: XR KUB DATE OF EXAM: 11/27/2020 Comparison: 11/20/2020 Clinical History: 55-year-old male left-sided calculus N20.0 Findings: Suggestion of faint 4 mm left mid abdominal calcification. No lytic phleboliths. Nonobstructive bowel gas pattern. Impression: Suspect a faint 4 mm left renal calculus.
== END | disposition home or self-care (01) ==
LOC: RADXRMAIN 09:15
PROVIDERS: ATTEND Urology
DX: N20.0 Calculus of kidney (principal)
CPT/HCPCS: 74018

== ENCOUNTER 2020-11-29 15:52 | Emergency (ER) | payer MEDICARE, OTHER ==
[2020-11-29] MEDS ORDERED: ONDANSETRON 4 MG/2 ML VIAL IVP STA (16:52)
[2020-11-29] MEDS ORDERED: KETOROLAC 15 MG/ML 1 ML VIAL IVP STA (16:52)
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
[2020-11-29 17:16] LABS: Basophils % (A) 0 %; Eosinophils % (A) 0 %; HCT 44.3 % (39.0-53.0); HGB 15.6 gm/dL (13.0-17.5); Lymphocytes % (A) 17 %; MCHC 35.2 g/dL (31.0-37.0); MCV 85.4 fL (80.0-100.0); Mean Platelet Volume 7.3; Monocytes # (A) 0.9 k/uL (0-1.0); Monocytes % (A) 8 %; Neutrophils # (A) 8.7 k/uL (1.3-7.7); Neutrophils % (A) 74 %; Platelet Count 245 k/uL (150-450); Poikilocytosis Slight; RBC 5.19 m/uL (4.30-5.90); RDW 14.9 % (11.5-15.5); WBC 11.8 k/uL (3.8-10.6)
[2020-11-29] MEDS ORDERED: MORPHINE SULFATE 2 MG/ML SYRINGE IVP ONE (17:22)
[2020-11-29 17:28] LABS: ALT 24 U/L (4-49); AST 29 U/L (17-59); African American GFR (CKD) >90 (>60 ml/min/1.73 sqM); Albumin 4.1 g/dL (3.5-5.0); Alkaline Phosphatase 69 U/L (38-126); Anion Gap 10 mmol/L; Blood Urea Nitrogen 14 mg/dL (9-20); Calcium 8.8 mg/dL (8.4-10.2); Carbon Dioxide 22 mmol/L (22-30); Chloride 102 mmol/L (98-107); Glucose 102 mg/dL (74-99); Non-African American GFR(CKD) >90 (>60 ml/min/1.73 sqM); Potassium 3.7 mmol/L (3.5-5.1); Sodium 134 mmol/L (137-145); Total Bilirubin 0.9 mg/dL (0.2-1.3); Total Protein 6.4 g/dL (6.3-8.2)
[2020-11-29 17:48] LABS: Appearance,Urine Clear (Clear); Bacteria,Urine Rare /hpf; Bilirubin,Urine Negative (Negative); Blood,Urine Large (Negative); Color,Urine Yellow; Glucose,Urine (UA) Trace (Negative); Ketones,Urine Negative (Negative); Leukocyte Esterase,Urine Negative (Negative); Mucus,Urine Rare /hpf; Nitrite,Urine Negative (Negative); PH, Urine 5.5 (5.0-8.0); Protein,Urine Negative (Negative); RBC,Urine 69 /hpf (0-5); Urobilinogen,Urine <2.0 mg/dL (<2.0); WBC,Urine 2 /hpf (0-5)
--- NOTE | 2020-11-29 18:08 | XR ---
EXAMINATION TYPE: XR KUB DATE OF EXAM: 11/29/2020 5:13 PM CLINICAL HISTORY: Left abdominal pain. History of kidney stone. TECHNIQUE: Upright images of the abdomen and pelvis were obtained COMPARISON: 11/27/2020. FINDINGS: Nonspecific bowel gas pattern. Bowel gas obscures the left renal shadow. The calcification overlying the left renal shadow on 11/27/2020 comparison is not discretely seen on current exam. The l german bases are clear. The osseous structures are intact. Pelvic phleboliths. IMPRESSION: 1. Nonspecific bowel gas pattern. 2. The left renal shadow is obscured by overlying bowel gas on current exam.
[2020-11-29 18:22] VITALS: BP 113/71; PULSE 62; RESP 18; TEMP 98.4
== END 2020-11-29 18:18 | disposition home or self-care (01) ==
LOC: EC 15:52
DX: N20.0 Calculus of kidney (principal); J44.9 Chronic obstructive pulmonary disease, unspecified; I10 Essential (primary) hypertension; E78.5 Hyperlipidemia, unspecified; M19.90 Unspecified osteoarthritis, unspecified site; Z79.82 Long term (current) use of aspirin; Z79.899 Other long term (current) drug therapy; Z79.51 Long term (current) use of inhaled steroids; Z87.891 Personal history of nicotine dependence; Z88.1 Allergy status to other antibiotic agents; Z91.040 Latex allergy status
CPT/HCPCS: 36415; 80053; 85025; 81001; 74018; 99284; 96374; 96375; J2405; J2270; J1885

== ENCOUNTER → 2020-12-04 | Outpatient (CLI) | payer MEDICARE, OTHER ==
--- NOTE | 2020-12-04 10:33 | XR ---
EXAMINATION TYPE: XR KUB DATE OF EXAM: 12/04/2020 10:22 AM CLINICAL HISTORY: Left-sided kidney stone. TECHNIQUE: Two supine KUB images of the abdomen are obtained. COMPARISON: Abdominal x-ray [address] abdomen and pelvis September 13, 2020 FINDINGS: A few scattered pelvic phleboliths bilaterally are redemonstrated. No definitive nephrolith iasis. Slightly suboptimal evaluation due to overlying large body habitus. Overall nonobstructive bowel gas pattern.. Visualized osseous structures are intact. IMPRESSION: As above.
== END | disposition home or self-care (01) ==
LOC: RADXRMAIN 10:00
PROVIDERS: ATTEND Urology
DX: Z03.89 Encounter for observation for other suspected diseases and conditions ruled out (principal)
CPT/HCPCS: 74018

== ENCOUNTER → 2021-02-07 | Outpatient (CLI) | payer MEDICARE, OTHER ==
--- NOTE | 2021-02-08 11:10 | US ---
EXAMINATION TYPE: US kidneys/renal and bladder DATE OF EXAM: 02/07/2021 COMPARISON: CT 09/13/2020 CLINICAL HISTORY: 55-year-old male N20.0 calculus. Hx of kidney stones TECHNIQUE: Multiple sonographic images of the kidneys and bladder are obtained. EXAM MEASUREMENTS: Right Kidney: 13.7 x 5.4 x 4.1 cm Left Kidney: 13.2 x 6.0 x 4.5 cm Denture Processor notes:*technical limitations due to patient's body habitus and large amount of overlying bowel content Right Kidney: Slightly thin renal cortex. Possible stone lower pole = 0.8cm. No hydronephrosis. Left Kidney: thin renal cortex Bladder: Underdistention limits its evaluation. Bilateral Jets seen: no IMPRESSION: 1. Some cortical thinning suggests chronic medical renal disease. 2. No hydronephrosis seen. 3. Possible 8 mm nonobstructive right renal calculus at the lower pole.
== END | disposition home or self-care (01) ==
LOC: RADUSWWP 15:31
PROVIDERS: ATTEND Urology
DX: N28.89 Other specified disorders of kidney and ureter (principal)
CPT/HCPCS: 76770

== ENCOUNTER 2021-05-10 07:43 | Day surgery (SDC) | payer MEDICARE, OTHER ==
[2021-05-07 11:56] VITALS: BMI 39.0
[~2021-05-10 07:43] MED LIST changes: -LIDOCAINE 1% (10MG/ML) FOR IV START INTRADERMA PRN
[2021-05-10 08:17] VITALS: TEMP 98.1
[2021-05-10] MEDS ORDERED: PROPOFOL 10 MG/ML 20 ML VIAL IV ONE (08:24)
[2021-05-10] MEDS ORDERED: LIDOCAINE 1% INJ 10MG/ML (20 ML MDV) ONE (08:24)
--- NOTE | 2021-05-10 08:38 | P.OP ---
Date of Procedure: 05/10/21 Preoperative Diagnosis: Screening Colonoscopy Postoperative Diagnosis: External hemorrhoids Procedure(s) Performed: Colonoscopy Anesthesia: MAC Surgeon: Severo White Pathology: none sent Condition: stable Disposition: PACU Description of Procedure: Patient's placed endoscopy table lateral position. He received IV sedation. Digital rectal exam was performed. The prostate was symmetric without nodules. The patient had external hemorrhoids. The colonoscope was then placed patient anus and passed throughout the entire colon. The ileocecal valve was visualized. Cecum, ascending and transverse colon appeared normal. The descending and sigmoid colon appeared normal. Scope summer back the rectum was normal. Scope withdrawn for patient.
[2021-05-10 09:02] VITALS: BP 101/64; PULSE 70; RESP 16
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
== END 2021-05-10 09:10 | disposition home or self-care (01) ==
LOC: ORWHC2ENDO 07:43
PROVIDERS: ATTEND Surgery
DX: Z12.11 Encounter for screening for malignant neoplasm of colon (principal); K64.4 Residual hemorrhoidal skin tags; K21.9 Gastro-esophageal reflux disease without esophagitis; J44.9 Chronic obstructive pulmonary disease, unspecified; E78.5 Hyperlipidemia, unspecified; I10 Essential (primary) hypertension; M19.90 Unspecified osteoarthritis, unspecified site; G47.30 Sleep apnea, unspecified; Z87.09 Personal history of other diseases of the respiratory system; J39.8 Other specified diseases of upper respiratory tract; J98.09 Other diseases of bronchus, not elsewhere classified; Z87.442 Personal history of urinary calculi; Z87.19 Personal history of other diseases of the digestive system; Z90.49 Acquired absence of other specified parts of digestive tract; Z96.651 Presence of right artificial knee joint; Z98.890 Other specified postprocedural states; Z87.891 Personal history of nicotine dependence; Z83.3 Family history of diabetes mellitus; Z82.3 Family history of stroke; Z83.6 Family history of other diseases of the respiratory system; Z79.82 Long term (current) use of aspirin; Z79.890 Hormone replacement therapy; Z79.891 Long term (current) use of opiate analgesic; Z79.899 Other long term (current) drug therapy; Z88.1 Allergy status to other antibiotic agents; Z91.040 Latex allergy status
CPT/HCPCS: J2001; J2704; G0121

== ENCOUNTER → 2021-08-10 | Outpatient (CLI) | payer MEDICARE, OTHER ==
--- NOTE | 2021-08-11 12:15 | CT ---
EXAMINATION TYPE: CT abdomen pelvis w con DATE OF EXAM: 08/10/2021 COMPARISON: 09/13/2020 HISTORY: Left lower quadrant pain CT DLP: 3140.2 mGycm Automated exposure control for dose reduction was used. CONTRAST: CT scan of the abdomen pelvis is performed with IV Contrast, patient injected with 100 mL of Isovue 3 00. FINDINGS- LUNG BASES- No significant abnormality is appreciated. LIVER/GB- No gross abnormality is appreciated. PANCREAS- No gross abnormality is seen. SPLEEN- No gross abnormality is seen. Small accessory spleen noted. ADRENALS- No gross abnormality is seen. KIDNEYS/BLADDER- no hydronephrosis nephrolithiasis or renal mass. Bilateral parapelvic renal cysts. N o renal calcifications on today's exam. Subcentimeter hypodensity in the mid pole posterior left kidn ey too small to characterize but stable, and statistically most likely related to simple cyst. BOWEL-bowel gas pattern nonspecific with no obstruction. Mild changes of diverticulosis. No CT eviden ce of diverticulitis. Surgical clips in the epigastric region. LYMPH NODES- No greater than 1cm abdominal or pelvic lymph nodes areappreciated. Shotty adenopathy s een in the pericaval region similar to prior exam. OSSEOUS STRUCTURES- No significant abnormality is seen. OTHER- mild atherosclerotic change aorta. No evidence of aneurysm. IMPRESSION- 1. Diverticulosis with no CT evidence of diverticulitis.
== END | disposition home or self-care (01) ==
LOC: RADCTMAIN 14:46
PROVIDERS: ATTEND Surgery
DX: K57.90 Diverticulosis of intestine, part unspecified, without perforation or abscess without bleeding (principal)
CPT/HCPCS: 74177; Q9967

== ENCOUNTER → 2022-07-24 | Outpatient (CLI) | payer MEDICARE, OTHER ==
--- NOTE | 2022-07-24 17:04 | MR ---
EXAMINATION TYPE: MR lumbar spine wo con DATE OF EXAM: 07/24/2022 11:31 AM COMPARISON: MRI 03/23/2019 CLINICAL INDICATION:Male, 56 years old with history of M47.26 SPONDYLOSIS WITH RADICULOPATHY; Chroni c lower back pain, BLE radiculopathy, worse on the right side. TECHNIQUE: Multi planar, multi sequence imaging was performed utilizing: T1-weighted, T2-weighted, a nd turbo inversion recovery imaging of the lumbar spine. IV Contrast: None. FINDINGS: Alignment: The lumbar vertebral bodies have preserved heights and alignment. Cord: The conus medullaris and the distal spinal cord appear unremarkable with regards to their signa l intensity and morphology. Bones/Discs: Bone signal is within normal limits. No abnormal bony edema on inversion recovery sequen jovani. Multilevel degenerative disc disease is noted and most pronounced at the . Disc desiccation and multiple levels including L5-S1. T12-L1: No evidence of significant spinal canal stenosis or neural foraminal stenosis. L1-L2: Disc extrusion centrally with 4 mm inferior and superior migration of disc material. During im aging the disc material does not touch any rootlets in the thecal sac. Narrowing of the ventral subar achnoid space. The neural foramen are patent. L2-L3: No evidence of significant spinal canal stenosis or neural foraminal stenosis. Trace bilateral facet joint effusions. L3-L4: No evidence of significant spinal canal stenosis or neural foraminal stenosis. Trace bilatera l facet joint effusions. L4-L5: No evidence of significant spinal canal stenosis or neural foraminal stenosis. L5-S1: The disc is rounded posterior morphology without significant spinal canal stenosis. Facet join t arthropathy with mild neural foraminal stenosis. Other findings: None. IMPRESSION: L1-L2 disc extrusion/herniation with superior and inferior migration of disc material. During imaging the disc material did not efface any recurrent nerve rootlets. No evidence of significant spinal can al or neural foraminal stenosis. This finding is mildly progressed from 2019.
== END | disposition home or self-care (01) ==
LOC: RADMRIMAIN 10:38
PROVIDERS: ATTEND Orthopaedic Surgery
DX: M47.26 Other spondylosis with radiculopathy, lumbar region (principal); M51.16 Intervertebral disc disorders with radiculopathy, lumbar region; G89.29 Other chronic pain
CPT/HCPCS: 72148

== ENCOUNTER → 2022-09-25 | Outpatient (CLI) | payer MEDICARE, OTHER ==
[2022-09-25 10:14] VITALS: BP 116/72; PULSE 79; RESP 18; TEMP 97.3
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
== END ==
LOC: PNWHC3 07:57
PROVIDERS: ATTEND Specialist
DX: M51.16 Intervertebral disc disorders with radiculopathy, lumbar region (principal); M43.07 Spondylolysis, lumbosacral region; M48.062 Spinal stenosis, lumbar region with neurogenic claudication; Z79.82 Long term (current) use of aspirin; Z87.891 Personal history of nicotine dependence; M19.90 Unspecified osteoarthritis, unspecified site; J44.9 Chronic obstructive pulmonary disease, unspecified; K21.9 Gastro-esophageal reflux disease without esophagitis; E78.5 Hyperlipidemia, unspecified; I10 Essential (primary) hypertension; G47.33 Obstructive sleep apnea (adult) (pediatric); Z79.890 Hormone replacement therapy; Z88.1 Allergy status to other antibiotic agents; Z91.040 Latex allergy status
CPT/HCPCS: 99211

== ENCOUNTER 2023-05-15 07:47 | Day surgery (SDC) | payer MEDICARE, OTHER ==
[~2023-05-15 07:47] MED LIST changes: +LIDOCAINE 1% (10MG/ML) FOR IV START INTRADERMA PRN
[2023-05-15 09:11] LABS: Glucose,Whole Blood 119 mg/dL (70-110)
[2023-05-15] MEDS: LACTATED RINGERS 1,000 ML IV ONE (09:14)
[2023-05-15 09:28] VITALS: TEMP 97.1
[2023-05-15] MEDS ORDERED: PROPOFOL 10 MG/ML 20 ML VIAL IV ONE (09:50)
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
--- NOTE | 2023-05-15 10:07 | P.OP ---
Date of Procedure: 05/15/23 Preoperative Diagnosis: Gerd Postoperative Diagnosis: Antral gastritis Procedure(s) Performed: EGD Anesthesia: MAC Surgeon: Severo White Pathology: other (Antrum) Condition: stable Disposition: PACU Description of Procedure: Patient was placed on the endoscopy table in the lateral position. He received IV sedation. The gas was placed oropharynx passed in the esophagus of the stomach. Scope was then placed through the pylorus. The first and second portion duodenum appeared normal. Scope was then brought back to the antrum was mildly flayed. A biopsy performed. The scope was then retroflexed and the stomach was insufflated. No significant hiatal hernia was visualized. The GE junction was at 38 cm. The distal esophagus appeared normal. The proximal esophagus appeared normal. Scope withdrawn for the patient.
[2023-05-15 10:16] LABS: Glucose,Whole Blood 114 mg/dL (70-110)
[2023-05-15 10:30] VITALS: BP 100/63; RESP 16
[2023-05-15 10:31] VITALS: PULSE 72
== END 2023-05-15 11:31 | disposition home or self-care (01) ==
LOC: ORWHC2ENDO 07:47
PROVIDERS: ATTEND Surgery
DX: K29.50 Unspecified chronic gastritis without bleeding (principal); K21.9 Gastro-esophageal reflux disease without esophagitis; J44.9 Chronic obstructive pulmonary disease, unspecified; E11.9 Type 2 diabetes mellitus without complications; E78.5 Hyperlipidemia, unspecified; I10 Essential (primary) hypertension; G47.33 Obstructive sleep apnea (adult) (pediatric); M19.90 Unspecified osteoarthritis, unspecified site; Z87.442 Personal history of urinary calculi; Z90.49 Acquired absence of other specified parts of digestive tract; Z98.890 Other specified postprocedural states; Z83.3 Family history of diabetes mellitus; Z82.3 Family history of stroke; Z79.82 Long term (current) use of aspirin; Z79.899 Other long term (current) drug therapy
CPT/HCPCS: 88305; 43239; J2704

== ENCOUNTER → 2023-06-02 | Outpatient (CLI) | payer MEDICARE, OTHER ==
[2023-06-02 10:47] LABS: African American GFR (CKD) >90 (>60 ml/min/1.73 sqM); Blood Urea Nitrogen 11 mg/dL (9-20); Non-African American GFR(CKD) >90 (>60 ml/min/1.73 sqM)
--- NOTE | 2023-06-02 12:42 | CT ---
EXAMINATION TYPE: CT abdomen pelvis w con DATE OF EXAM: 06/02/2023 COMPARISON: 08/10/2021 HISTORY: 57-year-old male K57.32, diverticulitis TECHNIQUE: Contiguous axial scanning of the abdomen and pelvis following administration of 100 ml Iso noman k300 IV contrast. Delayed images through the kidneys and coronal/sagittal reconstructions perfor med. CT DLP: 1906 mGycm Automated exposure control for dose reduction was used. FINDINGS: LUNG BASES: No significant abnormality is appreciated. LIVER/GB: Mildly diminished attenuation of the hepatic parenchyma suggesting fatty infiltration. Port al venous system is patent. No biliary ductal dilatation. PANCREAS: No significant abnormality is seen. SPLEEN: No significant abnormality is seen. ADRENALS: No significant abnormality is seen. KIDNEYS: There are bilateral parapelvic cysts redemonstrated measuring up to 3.3 cm on the left. Some concurrent renal cortical cysts measuring up to 1.2 cm. There is a 4 mm stone in the left UPJ region. No hydronephrosis. LYMPH NODES: No significant abnormality is seen. BOWEL: Postsurgical change at junction suggesting prior Zain fundoplication. No dilated small bowel , free fluid, or free air. Normal appendix. Mild overall stool burden. There is mid to distal sigmoid diverticulosis. No pericolonic inflammatory change seen. PELVIS: Bladder is collapsed. A few pelvic phleboliths. No abnormal fluid collection in the pelvis or pelvic lymphadenopathy. OTHER: No significant abnormality is seen. BONES: Cortical deformity posterior left iliac crest likely relates to site of previous trauma or bon e graft harvesting. Clinically correlate. Mild facet arthropathy lower lumbar spine. IMPRESSION: 1. MID TO DISTAL SIGMOID DIVERTICULOSIS WITHOUT ACUTE DIVERTICULITIS. 2. A 4 MM STONE IN THE LEFT UPJ REGION/UPPER URETER WITHOUT SIGNIFICANT OBSTRUCTIVE UROPATHY.
== END | disposition home or self-care (01) ==
LOC: RADCTMAIN 10:06
PROVIDERS: ATTEND Surgery
DX: K57.32 Diverticulitis of large intestine without perforation or abscess without bleeding (principal); N20.1 Calculus of ureter
CPT/HCPCS: 82565; 84520; 74177; Q9967

== ENCOUNTER → 2023-06-24 | Outpatient (CLI) | payer MEDICARE, OTHER ==
[~2023-06-24] MED LIST changes: -LACTATED RINGERS 1,000 ML IV SCH; -LIDOCAINE 1% (10MG/ML) FOR IV START INTRADERMA PRN; +REGADENOSON 0.4 MG/5 ML SYRINGE IV PRN
--- NOTE | 2023-06-24 12:13 | CA ---
Lexiscan Nuclear Stress Test Report Name: Saud Guzman Exam Date: 06/24/2023 09:42 Exam Location: [facility] Ht (in): 72 Wt (lb): 272 BSA: 2.43 Ordering Phys: Juan Layton MD Referring Phys: JUAN LAYTON Technologist: AYANA ALCANTAR Age: 57 Gender: M : 1965 Procedure CPT: Indications: R07.9 CHEST PAIN ICD-10 Codes: Patient History: Medications: ATENOLOL, FLOMAX, LEVOTHYROXINE, ZOCOR, SIMVASTATIN, ASA, NORCO, METFORMIN, TRULICITY Meds past 24 hrs: Pretest Chest Pain: STRESS TEST Lexiscan Protocol Exercise Duration (min:sec): 01:[address] Depressions (mm): Angina Score: Heath Score: Resting HR (bpm): 70 Peak HR (bpm): 95 Resting BP (mmHg): 130 / 81 Peak BP (mmHg): 132 / 73 MPHR: 161 Target HR: 137 % MPHR: 59 METS: 1.0 Total Dose: Peak Dose: Atropine: Double Product: 31808 BP Response: Stress Termination: PROTOCOL COMPLETE Stress Symptoms: NO SYMPTOMS Stress Summary: ECG ANALYSIS Resting ECG: Sinus rhythm with left anterior fascicular block Stress ECG: No significant ST-T wave changes are diagnostic for ischemia CONCLUSIONS Nonischemic ECG response to Lexiscan infusion Normal hemodynamic and clinical response to Lexiscan infusion Overall normal ECG portion of the stress test Please refer to the nuclear imaging portion of the stress test for complete interpretation of this study Dr Curly Wakefield (Electronically Signed) Final Date: 24 June 2023 12:12
--- NOTE | 2023-06-24 13:13 | NM ---
EXAMINATION TYPE: NM stress lexiscan cardiolite DATE OF EXAM: 06/24/2023 COMPARISON: 02/17/2018 CLINICAL INDICATION: Male, 57 years old with history of R07.9 chest pain; TECHNIQUE: After the intravenous administration of 9.2 mCi Tc 99m Sestamibi - Cardiolite resting SPE CT images acquired 45 minutes post injection. The patient received 0.4mg Lexiscan, 25.4 mCi Tc 99m Sestamibi - Stress images obtained [address] injection FINDINGS: Review of stress and rest SPECT images demonstrates reduced uptake involving the apical, inferior and portions of the myocardial septum. Areas of stress-induced reversibility involving the apical latera l and myocardial septum in the differential diagnosis.. Gated analysis shows reduced wall motion wit h an estimated left ventricular ejection fraction of 40 %. Report called to the referring clinician 1:09 PM 06/24/2023. IMPRESSION: 1. Findings suspicious for a small area of stress-induced reversible ischemia involving the apical la teral and myocardial septal wall. 2. Resting ejection fraction of only 40%.
== END | disposition home or self-care (01) ==
LOC: RADNMMAIN 07:57
PROVIDERS: ATTEND Family Medicine
DX: R07.9 Chest pain, unspecified (principal); I20.89 Other forms of angina pectoris
CPT/HCPCS: 93017; 78452; A9500; J2785

== ENCOUNTER 2023-07-16 05:47 | Day surgery (SDC) | payer MEDICARE, OTHER ==
[2023-07-16] MEDS ORDERED: HEPARIN SODIUM,PORCINE 10,000 UNIT in SODIUM CHLORIDE 0.9% 1,000 ML IRRIGATION PRN (05:56)
[2023-07-16] MEDS ORDERED: SODIUM CHLORIDE 0.9% 1,000 ML in EMPTY BAG 1 BAG IV SCH (05:56)
[2023-07-16] MEDS ORDERED: HEPARIN SODIUM,PORCINE (1 ML) 2,500 UNIT in SODIUM CHLORIDE 0.9% 250 ML IRRIGATION PRN (05:56)
[2023-07-16] MEDS ORDERED: NITROGLYCERIN SL TABS 0.4 MG TAB SUBLINGUAL PRN (05:56)
[2023-07-16] MEDS ORDERED: ALPRAZolam 0.25 MG TAB PO PRN (05:56)
[2023-07-16] MEDS: ASPIRIN 325 MG TAB PO ONE (06:20)
[2023-07-16] MEDS: ALPRAZolam 0.5 MG TAB PO PRN (06:40)
[2023-07-16] MEDS ORDERED: ATORVASTATIN 80 MG TAB PO ONE (07:00)
[2023-07-16] MEDS: SODIUM CHLORIDE 0.9% 1,000 ML IV ONE (07:07)
[2023-07-16] MEDS ORDERED: VERAPAMIL 2.5 MG/ML 2 ML AMP ONE (07:14)
[2023-07-16] MEDS ORDERED: LIDOCAINE 1% INJ 10MG/ML (20 ML MDV) ONE (07:14)
[2023-07-16 07:22] VITALS: RESP 16; TEMP 98.6
[2023-07-16] MEDS ORDERED: HEPARIN SODIUM 1,000 UN/ML (10ML VL) ONE (07:32)
[2023-07-16] MEDS ORDERED: fentaNYL (PF) 50 MCG/ML 2 ML AMP ONE (07:32)
[2023-07-16 07:34] LABS: Basophils # (A) 0.1 k/uL (0-0.2); Basophils % (A) 1 %; Eosinophils # (A) 0.1 k/uL (0-0.7); Eosinophils % (A) 2 %; Lymphocytes # (A) 2.9 k/uL (1.0-4.8); Lymphocytes % (A) 38 %; MCH 28.3 pg (25.0-35.0); MCV 83.1 fL (80.0-100.0); Mean Platelet Volume 7.2; Monocytes # (A) 0.5 k/uL (0-1.0); Monocytes % (A) 7 %; Neutrophils # (A) 3.7 k/uL (1.3-7.7); Neutrophils % (A) 50 %; Platelet Count 244 k/uL (150-450); RBC 5.29 m/uL (4.30-5.90); RDW 13.7 % (11.5-15.5); WBC 7.5 k/uL (3.8-10.6)
[2023-07-16 07:38] LABS: African American GFR (CKD) >90 (>60 ml/min/1.73 sqM); Anion Gap 7 mmol/L; Blood Urea Nitrogen 17 mg/dL (9-20); Carbon Dioxide 27 mmol/L (22-30); Chloride 107 mmol/L (98-107); Glucose 112 mg/dL (74-99); Non-African American GFR(CKD) >90 (>60 ml/min/1.73 sqM); Potassium 4.3 mmol/L (3.5-5.1); Sodium 141 mmol/L (137-145)
[2023-07-16] MEDS: fentaNYL (PF) 50 MCG/ML 2 ML AMP IVP ONE (07:46)
[2023-07-16] MEDS: LIDOCAINE 1% INJ 10MG/ML (20 ML MDV) SQ ONE ×2 (07:50→07:53)
[2023-07-16] MEDS: MIDAZOLAM 2 MG/2 ML VIAL IVP ONE (07:53)
[2023-07-16] MEDS: VERAPAMIL SYRINGE (5 MG/10 ML) INTRAARTER ONE (07:53)
[2023-07-16] MEDS: HEPARIN SODIUM 1,000 UN/ML (10ML VL) IVP ONE (07:56)
[2023-07-16] MEDS: IOPAMIDOL-370 100ML BTL INJ ONE (08:05)
[2023-07-16] MEDS ORDERED: RX INFO: IV CONTRAST WAS GIVEN 1 EACH MISC MISCELLANE PRN (08:11)
[2023-07-16] MEDS ORDERED: SODIUM CHLORIDE 0.9% 1,000 ML IV SCH (08:15)
--- NOTE | 2023-07-16 08:16 | P.CARDCATH ---
Date of Procedure: 07/16/23 Description of Procedure: Cardiac Catheterization: The patient is a 57-year-old male who has been complaining of symptoms of progressive dyspnea, chest discomfort and had an abnormal MPI. He has a history of hypertension, hyperlipidemia and diabetes mellitus. His MPI showed evidence of cardiomyopathy. Recommendations were made regarding cardiac catheterization, the risks and the complications were discussed with the patient who is in full understanding and agreement. Procedure Description: Patient was brought to central lab technician in fasting semi-sedated state after receiving Fentanyl and Benadryl achieiving moderate conscious sedated state. Using Xylocaine Anesthesia and modified Seldinger technique, a 6-Kittitian sheath was introduced in the right radial artery . Subsequently, selective coronary angiography was performed using a 5-Kittitian 3.5 bend Lisa catheter. Multiple views of the coronary artery including hemiaxial views were obtained. The right Lisa catheter was used to cross the aortic valve and LVEDP was calculated. Following that, catheter and sheath were removed. Hemostasis was obtained with deployment of vascular band . There was no immediate complication. Patient was returned to room in stable condition. Of note, the patient received a total of 5000 units of intravenous heparin as well as intra-arterial verapamil. Findings: Left main: This is a large size vessel, bifurcating into LAD and left circumflex, left main has no obstructive disease. LAD: This is a large size vessel giving rise to a large proximal diagonal branch. The LAD and its branches have no obstructive disease. Left circumflex: This is a nondominant vessel giving rise to a very proximal obtuse marginal branch, the second obtuse marginal branch is large in caliber. The left circumflex and its branches have no obstructive disease. RCA: This is a large dominant vessel, bifurcating distally to PDA and PLV. The mid right coronary artery has a 20% plaque, the rest of the vessel has no high- grade stenosis. Left Ventriculogram: Not performed Hemodynamics: There was no gradient across the aortic valve, LVEDP was 12-14 mmHg Conclusion: 1. Mild disease in the RCA 2. Right dominance 3. No obstructive disease in the LAD and left circumflex 4. Normal LVEDP Recommendations: The patient will continue on present therapy with the aggressive coronary risks modifications. The findings and the recommendations were discussed with the patient and the family and they were in full understanding and agreement. Duration of sedation is 11 minutes.
[2023-07-16] MEDS ORDERED: LEVOTHYROXINE 75 MCG TAB PO SCH (09:00)
[2023-07-16] MEDS ORDERED: ISOSORBIDE MONONITRATE ER 30 MG TAB.ER.24H PO SCH (09:00)
[2023-07-16 10:55] VITALS: BP 118/57; PULSE 74
[2023-07-16] MEDS ORDERED: ATORVASTATIN 80 MG TAB PO SCH (21:00)
[2023-07-16] MEDS ORDERED: ASPIRIN 81 MG PO SCH (21:00)
[2023-07-17] MEDS ORDERED: NON FORMULARY DRUG (Dulaglutide [Trulicity] 0.75 MG/0.5 ML Each) SQ SCH (09:00)
[2023-07-17] MEDS ORDERED: atenoloL 50 MG TAB PO SCH (09:00)
== END 2023-07-16 11:45 | disposition home or self-care (01) ==
LOC: CATHCVL 05:47
PROVIDERS: ATTEND Internal Medicine Interventional Cardiology
DX: R07.89 Other chest pain (principal); I10 Essential (primary) hypertension; E78.2 Mixed hyperlipidemia; I42.8 Other cardiomyopathies; E11.9 Type 2 diabetes mellitus without complications; F17.210 Nicotine dependence, cigarettes, uncomplicated; Z82.49 Family history of ischemic heart disease and other diseases of the circulatory system; Z79.82 Long term (current) use of aspirin; Z79.84 Long term (current) use of oral hypoglycemic drugs; Z79.899 Other long term (current) drug therapy; Z98.890 Other specified postprocedural states
CPT/HCPCS: 93458; 80048; 85025; C1769 ×2; C1894; J2250; J2001; J3010; J1644; Q9967

== ENCOUNTER → 2023-08-11 | Outpatient (CLI) | payer MEDICARE, OTHER ==
[2023-08-11 17:35] LABS: BUN/Creat Ratio 14.56 Ratio (12.00-20.00); Blood Urea Nitrogen 13.1 mg/dL (9.0-27.0); Calcium 9.2 mg/dL (8.7-10.3); Carbon Dioxide 24.3 mmol/L (21.6-31.8); Chloride 108 mmol/L (96-109); Glucose 105 mg/dL (70-110); Potassium 4.3 mmol/L (3.5-5.5); Sodium 143 mmol/L (135-145)
== END | disposition home or self-care (01) ==
LOC: LABWHC1 11:38
PROVIDERS: ATTEND Internal Medicine Interventional Cardiology
DX: I42.8 Other cardiomyopathies (principal)
CPT/HCPCS: 36415; 80048

== ENCOUNTER → 2024-05-05 | Outpatient (CLI) | payer MEDICARE, OTHER ==
--- NOTE | 2024-05-05 12:46 | MR ---
INDICATION: Patient age:Male; 58 years old; Reason for study: M51.06 INTERVERTEBRAL DISC DISORDERS WITH MYELOPAT; [facility]. COMPARISONS: MRI lumbar spine 07/24/2022, 03/23/2019, 04/15/2017, CT thoracolumbar spine 02/26/2015. TECHNIQUE: Multi planar, multi sequence imaging was performed utilizing: T1-weighted, T2-weighted, a nd turbo inversion recovery imaging of the lumbar spine. The patient was not given contrast. FINDINGS: Alignment: The lumbar vertebral bodies have preserved heights and alignment. Cord: The conus medullaris and the distal spinal cord appear unremarkable with regards to their signa l intensity and morphology. Bones/Discs: Bone signal is within normal limits. No abnormal bony edema on inversion recovery sequen jovani. Multilevel disc desiccation. T12-L1: Development of disc extrusion centrally and extends into the left paracentral region. There i s superior migration of disc material approximately 1.3 cm posterior to the T12 vertebral body. Resul ts in mild to moderate effacement of anterior thecal sac with close approximation to the spinal cord along the anterior left lateral aspect. No neural foraminal stenosis. L1-L2: Redemonstration of disc extrusion with annular fissure. There is disc material migrating super iorly approximately 3 mm and inferiorly approximately 3 mm. There is no abutment of the nerve roots. Results in mild effacement of the anterior thecal sac. No neural foraminal stenosis. L2-L3: No evidence of significant spinal canal stenosis or neural foraminal stenosis. L3-L4: No evidence of significant spinal canal stenosis or neural foraminal stenosis. L4-L5: No evidence of significant spinal canal stenosis. Bilateral facet arthropathy with mild right neural foraminal stenosis. The left neural foramen is patent. L5-S1: The disc is rounded posterior morphology without significant spinal canal stenosis. There is a gain an annular fissure along the posterior aspect of the disc. Facet joint arthropathy. No neurofora keith stenosis. Other findings: Bilateral renal sinus T2 hyperintense cysts. IMPRESSION: 1. New T12-L1 disc extrusion with superior migration of disc material. This results in [id number] ate central canal stenosis. 2. Similar L1-L2 disc extrusion with superior and inferior migration of disc material. Results then mild central canal stenosis. [facility], , 05/05/2024 12:44 PM
== END | disposition home or self-care (01) ==
LOC: RADMRIMAIN 10:00
PROVIDERS: ATTEND Family Medicine
DX: M48.061 Spinal stenosis, lumbar region without neurogenic claudication (principal); M51.05 Intervertebral disc disorders with myelopathy, thoracolumbar region
CPT/HCPCS: 72148